=== PATIENT | female | born 1930 | race Caucasian/White ===

== ENCOUNTER 2016-07-12 08:33 | Emergency (ER) | payer MEDICARE, OTHER ==
[2016-07-12] MEDS ORDERED: DEXAMETHASONE 10 MG/ML VIAL PO STA (10:50)
[2016-07-12] MEDS ORDERED: CHERRY SYRUP 10 ML UDC PO ONE (10:51)
[2016-07-12] MEDS ORDERED: DEXAMETHASONE 10 MG/ML VIAL ONE (10:51)
== END 2016-07-12 11:21 | disposition home or self-care (01) ==
DX: S20.211A Contusion of right front wall of thorax, initial encounter (principal); W01.0XXA Fall on same level from slipping, tripping and stumbling without subsequent striking against object, initial encounter; Y92.019 Unspecified place in single-family (private) house as the place of occurrence of the external cause; E03.9 Hypothyroidism, unspecified; M19.90 Unspecified osteoarthritis, unspecified site
CPT/HCPCS: 71101; 99283; A9270

== ENCOUNTER 2017-01-24 08:55 | Outpatient (CLI) | payer MEDICARE, OTHER ==
--- NOTE | 2017-01-24 15:43 | Ultrasound Report ---
RIGHT LEG ARTERIAL DUPLEX: 01/24/2017 CLINICAL INDICATION: Claudication. TECHNIQUE: Real-time sonographic vascular imaging was performed by the project development coordinator through the lower extremities utilizing both color-flow and Doppler spectral analysis. Multiple parts sales representative static images were saved for review. RIGHT SIDE SITE PSV WAVEFORM STEN MANNEQUIN SANDER AND FINISHER 64 triphasic PSFA 67 triphasic MSFA 68 triphasic DSFA 47 biphasic PFA 44 triphasic POP 35 biphasic FLAVIA 31 monophasic GARMENT PARTS CUTTER HAND 19 monophasic PER 23 monophasic DPA 30 monophasic FINDINGS: Waveforms are predominantly triphasic in the thigh, and monophasic below the level of the popliteal. Despite this, there is no evidence of a focal velocity increase to suggest a hemodynamically significant stenosis. IMPRESSION: LIKELY SMALL VESSEL DISEASE, PRODUCING MONOPHASIC WAVEFORMS IN THE CALF. NO EVIDENCE OF A FOCAL HEMODYNAMICALLY SIGNIFICANT ARTERIAL STENOSIS. MTDD
== END 2017-01-24 08:56 | disposition home or self-care (01) ==
LOC: DI 08:55
PROVIDERS: ATTEND Internal Medicine
DX: I73.9 Peripheral vascular disease, unspecified (principal)

== ENCOUNTER 2018-04-02 12:26 | Outpatient (CLI) | payer MEDICARE, OTHER | END 2018-04-02 12:27 | disposition home or self-care (01) | LOC: DI 12:26 | PROVIDERS: ATTEND Internal Medicine | DX: Z53.9 Procedure and treatment not carried out, unspecified reason (principal) ==

== ENCOUNTER 2018-04-02 12:31 | Outpatient (CLI) | payer MEDICARE, OTHER ==
--- NOTE | 2018-04-02 13:53 | XRAY Report ---
Reason: WRIST PAIN AFTER FALL Procedure Date: 04/02/2018 Accession Number: [id number] / [id number] Procedure: XR - Wrist 4 View RT CPT Code: FULL RESULT: EXAM: RIGHT WRIST RADIOGRAPHY EXAM DATE: 04/02/2018 01:07 PM. CLINICAL HISTORY: WRIST PAIN AFTER FALL. COMPARISON: XR WRIST COMPLETE 3 VIEWS 04/20/2011 7:00 PM HAND 3 VIEW RT 04/02/2018 12:54 PM. TECHNIQUE: 4 views. FINDINGS: Bones: Osteopenia. No definite fracture or other bone lesion. Joints: Moderate degenerative changes in the first CMC and navicular multangular joints. No definite erosions. Soft Tissues: Mild soft tissue swelling. IMPRESSION: Soft tissue swelling. RADIA
--- NOTE | 2018-04-02 13:56 | XRAY Report ---
Reason: WRIST PAIN AFTER FALL Procedure Date: 04/02/2018 Accession Number: [id number] / [id number] Procedure: XR - Hand 3 View RT CPT Code: FULL RESULT: EXAM: RIGHT HAND RADIOGRAPHY EXAM DATE: 04/02/2018 12:54 PM. CLINICAL HISTORY: WRIST PAIN AFTER FALL. COMPARISON: XR WRIST COMPLETE 3 VIEWS 04/20/2011 7:00 PM. TECHNIQUE: 3 views. FINDINGS: Bones: Osteopenia. No definite fracture or other bone lesion. Multiple small cysts notably in the fifth metacarpal head and third, fourth, and fifth middle phalangeal heads. Joints: Mild degenerative changes distally. Moderate degenerative changes in the first CMC joint. Soft Tissues: Mild soft tissue swelling. IMPRESSION: Soft tissue swelling. RADIA
== END 2018-04-02 12:32 | disposition home or self-care (01) ==
LOC: DI 12:31
PROVIDERS: ATTEND Internal Medicine
DX: S69.91XA Unspecified injury of right wrist, hand and finger(s), initial encounter (principal)

== ENCOUNTER 2018-08-02 13:34 | Emergency (ER) | payer MEDICARE, OTHER ==
[2018-08-02 13:47] VITALS: BP 138/65
== END 2018-08-02 14:00 | disposition left against medical advice (07) ==
LOC: ED 13:34
DX: Z53.21 Procedure and treatment not carried out due to patient leaving prior to being seen by health care provider (principal)

== ENCOUNTER 2018-09-19 11:43 | Outpatient (CLI) | payer MEDICARE, OTHER ==
--- NOTE | 2018-09-19 12:38 | CT Report ---
Reason: HEADACHE, REPEATED FALLS Procedure Date: 09/19/2018 Accession Number: [id number] / [id number] Procedure: CT - HEAD WO CPT Code: FULL RESULT: EXAM: CT HEAD EXAM DATE: 09/19/2018 12:09 PM. CLINICAL HISTORY: HEADACHE, REPEATED FALLS. COMPARISON: HEAD W/O 12/18/2015 4:18 PM BRAIN W/O 01/30/2017 9:20 AM. TECHNIQUE: Multiaxial CT images were obtained from the foramen magnum to the vertex. Reformats: Sagittal and coronal. IV contrast: None. In accordance with CT protocol optimization, one or more of the following dose reduction techniques were utilized for this exam: automated exposure control, adjustment of mA and/or KV based on patient size, or use of iterative reconstructive technique. FINDINGS: Parenchyma: No evidence of an acute vascular insult or acute parenchymal hemorrhage. No midline shift. No mass-effect. Parenchymal volume loss with periventricular regions of low attenuation. Extraaxial Spaces: Extra-axial spaces are prominent. No subdural or epidural collections identified. Ventricles: Ventricles are enlarged although symmetric. Sinuses and Orbits: Imaged paranasal sinuses, orbits, and mastoids show no significant abnormality. Bones: No evidence of fracture or calvarial defect. Other: Changes are seen from bilateral lens surgery. Vascular calcifications. IMPRESSION: 1. No acute intracranial abnormality is identified. 2. No acute fracture. 3. Parenchymal volume loss and chronic white matter changes. RADIA
--- NOTE | 2018-09-19 12:55 | CT Report ---
Reason: REPEATED FALLS, HEADACHE, SYNCOPE AND COLLAPSE Procedure Date: 09/19/2018 Accession Number: [id number] / [id number] Procedure: CT - CERVICAL SPINE WO CPT Code: FULL RESULT: EXAM: CT CERVICAL SPINE WITHOUT CONTRAST DATE: 09/19/2018 12:09 PM. HISTORY: REPEATED FALLS, HEADACHE, SYNCOPE AND COLLAPSE. COMPARISONS: HEAD W/O 12/18/2015 4:18 PM CERVICAL SPINE W/O 08/18/2012 7:00 PM. TECHNIQUE: Thin-section axial images were acquired of the cervical spine without contrast. Post-processing: Coronal and sagittal reformats. Other: Headache, repeated falls.. In accordance with CT protocol optimization, one or more of the following dose reduction techniques were utilized for this exam: automated exposure control, adjustment of mA and/or KV based on patient size, or use of iterative reconstructive technique. FINDINGS: Alignment: 1.5 mm anterior subluxation C6 on C7. 2 mm anterior subluxation C7 on T1. Otherwise normal alignment. Bones: No fracture or bone lesion. Interspace Levels/Facets: C1-C2: Atlantodental joint space narrowing and marginal osteophytes similar to prior. C2-C3: Minimal facet arthropathy. No stenosis. C3-C4: Small central disk protrusion and mild facet arthropathy. No significant stenosis. C4-C5: Minimal disk bulge. Right great than left facet arthropathy. Small uncinate hypertrophy. Mild left great than right foraminal narrowing. C5-C6: Disk height loss. Annular disk bulge and osteophyte formation. Mild left greater than right facet arthropathy. Mild effacement of the thecal sac. Mild left foraminal stenosis. Mild right foraminal narrowing. C6-C7: Disk height loss. Minimal spondylolisthesis. Slight annular disk bulge and osteophyte formation without significant stenosis. C7-T1: Mild disk height loss. Minimal grade 1 spondylolisthesis. Small central disk protrusion and osteophyte formation without significant stenosis. Musculature: Normal. No fatty atrophy. Other: Lung apices are well aerated. Prevertebral soft tissues within normal limits. Aberrant origin of the right subclavian artery. IMPRESSION: 1. Cervical spondylosis. He had no significant canal or foraminal stenosis. RADIA
== END 2018-09-19 11:44 | disposition home or self-care (01) ==
LOC: DI 11:43
PROVIDERS: ATTEND Internal Medicine
DX: M47.812 Spondylosis without myelopathy or radiculopathy, cervical region (principal); M50.21 Other cervical disc displacement, high cervical region; R51 Headache; R55 Syncope and collapse; R29.6 Repeated falls; R41.3 Other amnesia
CPT/HCPCS: 70450; 72125

== ENCOUNTER 2018-12-05 09:37 | Outpatient (CLI) | payer MEDICARE, OTHER ==
--- NOTE | 2018-12-09 00:47 | XRAY Report ---
Reason: LEFT 4TH TOE PAIN Procedure Date: 12/05/2018 Accession Number: [id number] / [id number] Procedure: XR - Foot 3 View LT CPT Code: FULL RESULT: EXAM: LEFT FOOT RADIOGRAPHY EXAM DATE: 12/05/2018 10:10 AM. CLINICAL HISTORY: LEFT 4TH TOE PAIN. COMPARISON: TOE(S) LT 03/03/2016 11:07 AM. TECHNIQUE: 3 views. FINDINGS: Bones: Normal. No fractures or bone lesions. Joints: Add to degenerative changes in the first MTP joint. No subluxations. Soft Tissues: Arterial calcification noted. IMPRESSION: Advanced degenerative changes of the first MTP joint, otherwise no bony abnormality. RADIA
== END 2018-12-05 09:38 | disposition home or self-care (01) ==
LOC: DI 09:37
PROVIDERS: ATTEND Internal Medicine
DX: M19.072 Primary osteoarthritis, left ankle and foot (principal)

== ENCOUNTER 2019-09-11 19:41 | Emergency (ER) | payer MEDICARE, OTHER ==
[2019-09-11] MEDS ORDERED: LIDOCAINE PATCH 5% TOP STA (20:04)
--- NOTE | 2019-09-11 20:07 | ED Physician Documentation ---
History of Present Illness - Stated complaint Stated Complaint: CHEST PAIN - Chief complaint Chief Complaint: Trauma Ch/Bk - History obtained from History obtained from: Patient, Family - Additonal information Additional information: This is a very pleasant and healthy elderly woman who was outside in her shed and she had a mechanical fall forward hitting her chest wall against the edge of a garbage can. She has severe pain with motion but minimal pain at rest. It is in the anterior chest. No other injuries. Review of Systems Constitutional: reports: Reviewed and negative Eyes: reports: Reviewed and negative Ears: reports: Reviewed and negative Nose: reports: Reviewed and negative PD PAST MEDICAL HISTORY - Past Medical History Cardiovascular: None Endocrine/Autoimmune: HyPOthyroidism GI: None : None HEENT: None Psych: Depression Musculoskeletal: Osteoarthritis, Osteoporosis Derm: None - Past Surgical History Past Surgical History: Yes - Present Medications Home Medications: Ambulatory Orders Medication Instructions Recorded Confirmed HYDROcod/ACETAM 5/325 [[place] 5/325] 1 - 2 ea PO Q6H PRN #15 tablet 07/12/16 Lidocaine Patch 5% [Lidoderm Patch] 1 patch TOP DAILY PRN #10 patch 09/11/19 - Allergies Allergies/Adverse Reactions: Allergies Allergy/AdvReac Type Severity Reaction Status Date / Time No Known Drug Allergies Allergy Verified 08/02/18 13:47 - Social History Does the pt smoke?: No Smoking Status: Never smoker Does the pt drink ETOH?: No Does the pt have substance abuse?: No PD ED PE NORMAL - Vitals Vital signs reviewed: Yes - General General: Alert and oriented X 3, Other (She is focally tender to the right anterior ribs low down near the sternum. She winces with certain motions.) - HEENT HEENT: PERRL, EOMI - Neck Neck: Supple, no meningeal sign, No bony TTP - Cardiac Cardiac: RRR, No murmur - Respiratory Respiratory: No respiratory distress, Clear bilaterally - Abdomen Abdomen: Non tender - Neuro Neuro: Alert and oriented X 3, No motor deficit, Normal speech Results - Vitals Vitals: Vital Signs - 24 hr 09/11/19 09/11/19 19:43 20:05 Temperature 37.1 C Heart Rate 88 79 Respiratory 18 23 Rate Blood Pressure 159/75 H 148/90 H O2 Saturation 96 96 Oxygen O2 Source Room air PD MEDICAL DECISION MAKING - ED course ED course: 89-year-old woman presents with an isolated anterior chest wall injury after mechanical fall. A CT was done and showed no acute traumatic injuries. The incidental findings were discussed with her. She felt she did have good relief with the lidocaine patch and requested a prescription for same. Departure - Departure Disposition: 01 Home, Self Care Clinical Impression: Contusion of chest wall Qualifiers: Encounter type: initial encounter Laterality: right Qualified Code(s): S20.211A - Contusion of right front wall of thorax, initial encounter Condition: Good Record reviewed to determine appropriate education?: Yes Instructions: ED Contusion Chest Wall Prescriptions: Lidocaine Patch 5% [Lidoderm Patch] 1 patch TOP DAILY PRN #10 patch PRN Reason: pain Comments: As discussed, you have some incidental findings on the CT, some gallstones and a right upper lobe pulmonary nodule and we recommend a follow-up CT scan in 6 to 12 months. Return for new or worsening symptoms.
--- NOTE | 2019-09-11 21:13 | CT Report ---
PROCEDURE: CHEST WO INDICATIONS: chest inj TECHNIQUE: Noncontrast 5 mm thick sections acquired from the pulmonary apices to the posterior costophrenic angl es. 7 mm thick coronal and sagittal MIP reformats were then acquired. For radiation dose reduction, the following was used: automated exposure control, adjustment of mA and/or kV according to patient size. COMPARISON: 08/20/2012. FINDINGS: Image quality: Excellent. Lungs and pleura: No acute air space opacities. 1.1 cm groundglass nodule noted in the right upper l obe (series 4, image 93) which is new compared to prior CT scan. Additional bilateral calcified and n oncalcified solid lung nodules are not significantly changed compared to the prior exam. No pleural e ffusions or pneumothorax. Central and peripheral airways are patent and normal in caliber. Mediastinum: Heart size is normal. Atherosclerotic calcifications noted in the aorta, great vessels and coronary vasculature. No pericardial effusion. No mediastinal adenopathy by size criteria. 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 Thoracic aorta and central pulm onary arteries are normal in size. Esophagus is normal in caliber. No hiatal hernia. Bones and chest wall: No suspicious bony lesions. Chronic posterior right 10th and 11th rib fracture s which is healed in slight deformity. No acute rib fractures identified. No vertebral body compress ion fractures. No axillary or supraclavicular adenopathy by size criteria. The thyroid is normal in size. Abdomen: Partially visualized large gallstone. Visualized upper abdominal solid organs and bowel loo ps appear normal in the absence of contrast. IMPRESSION: 1. No acute traumatic injury. 2. No lung consolidation or pleural fluid collections. 3. Atherosclerosis including coronary vasculature. 4. Cholelithiasis. 5. 1.1 cm right upper lobe bronchus nodule. Recommend follow-up CT scan in 6-12 months based on Fleis chner Society criteria outlined below. Fleischner Society criteria for lung nodule followup. Solid nodules Solitary nodule size: <6 mm * low risk patients: no follow-up needed * high risk patients: optional CT at 12 months Solitary nodule size: 6-8 mm * low risk patients: follow-up at 6-12 months, then consider further follow-up at 18-24 months * high risk patients: initial follow-up CT at 6-12 months and then at 18-24 months if no change Solitary nodule size: >8 mm * either low or high risk patients * consider follow-up CT at 3 months, and/or CT-PET, and/or biopsy Multiple nodules size: <6 mm * low risk patients: no routine follow-up * high risk patients: optional CT at 12 months Multiple nodules size: 6-8 mm * low risk patients: follow-up at 3-6 months, then consider further follow-up at 18-24 months * high risk patients: follow-up at 3-6 months, then at 18-24 months if no change Multiple nodules size: >8 mm * low risk patients: follow-up at 3-6 months, then consider further follow-up at 18-24 months * high risk patients: follow-up at 3-6 months, then at 18-24 months if no change Subsolid nodules Solitary pure ground-glass nodule * nodule size <6mm * no CT follow-up required * nodule size ?6mm * follow up CT at 6-12 months, then every 2 years until 5 years Solitary part-solid nodule * nodule size <6mm * no CT follow-up required * nodule size ?6mm * follow-up CT at 3-6 months * if unchanged, and solid component remains <6mm, then annual follow-up for 5 years Multiple subsolid nodules * nodule size <6mm * follow-up CT at 3-6 months * consider further follow-up at 2 and 4 years if stable * nodule size ?6mm * follow-up CT at 3-6 months * subsequent management based on the most suspicious nodule(s) Recommendations do not apply to lung cancer screening, patient's with immunosuppression or patients w ith known primary cancer. Reviewed by: Freya Zamora MD, PhD on 09/11/2019 9:12 PM PDT Approved by: Freya Zamora MD, PhD on 09/11/2019 9:12 PM PDT Station ID: [id number]
[2019-09-11 22:03] VITALS: BP 144/78
== END 2019-09-11 22:03 | disposition home or self-care (01) ==
LOC: ED 19:41
DX: S20.211A Contusion of right front wall of thorax, initial encounter (principal); K80.20 Calculus of gallbladder without cholecystitis without obstruction; W01.198A Fall on same level from slipping, tripping and stumbling with subsequent striking against other object, initial encounter; Y92.096 Garden or yard of other non-institutional residence as the place of occurrence of the external cause; R91.1 Solitary pulmonary nodule; I25.10 Atherosclerotic heart disease of native coronary artery without angina pectoris
CPT/HCPCS: 71250; 99282; 99284; A9270

== ENCOUNTER 2020-02-15 22:01 | Emergency (ER) | payer MEDICARE, OTHER ==
--- NOTE | 2020-02-15 22:48 | ED Physician Documentation ---
History of Present Illness - Stated complaint Stated Complaint: GLF/HEAD LAC - Chief complaint Chief Complaint: Trauma Hd/Nk - History obtained from History obtained from: Patient - Additonal information Additional information: Pt comes to the emergency department, brought by son, after ground-level fall at home. Patient states she was walking across the room and turned a corner when she suddenly lost her balance. She states this happens frequently and that she has had falls before for the same reason. She felt herself falling and remembers hitting her head on something and feeling a "pop" which she thinks may have been in her neck. Patient states she lost consciousness though is not clear for how long. Patient upon coming to found that she had a wound on the back of her head and pain in her left shoulder. Patient denies any pain in her neck. No numbness or tingling in her extremities. No extremity weakness. Patient is not on any anticoagulants. She denies any back pain, rib pain, or hip pain. No other complaints at this time. Review of Systems Ten Systems: 10 systems reviewed and negative Constitutional: reports: Reviewed and negative Eyes: reports: Reviewed and negative Ears: reports: Reviewed and negative Nose: reports: Reviewed and negative Throat: reports: Reviewed and negative Cardiac: reports: Reviewed and negative Respiratory: reports: Reviewed and negative GI: reports: Reviewed and negative : reports: Reviewed and negative Skin: reports: Reviewed and negative Musculoskeletal: reports: Joint pain (Left shoulder), Reviewed and negative Neurologic: reports: Reviewed and negative Psychiatric: reports: Reviewed and negative Endocrine: reports: Reviewed and negative Immunocompromised: reports: Reviewed and negative PD PAST MEDICAL HISTORY - Past Medical History Cardiovascular: None Endocrine/Autoimmune: HyPOthyroidism GI: None : None HEENT: None Psych: Depression Musculoskeletal: Osteoarthritis, Osteoporosis Derm: None - Past Surgical History Past Surgical History: Yes - Present Medications Home Medications: Ambulatory Orders Medication Instructions Recorded Confirmed HYDROcod/ACETAM 5/325 [[place] 5/325] 1 - 2 ea PO Q6H PRN #15 tablet 07/12/16 Lidocaine Patch 5% [Lidoderm Patch] 1 patch TOP DAILY PRN #10 patch 09/11/19 - Allergies Allergies/Adverse Reactions: Allergies Allergy/AdvReac Type Severity Reaction Status Date / Time No Known Drug Allergies Allergy Verified 02/15/20 22:13 - Social History Does the pt smoke?: No Smoking Status: Never smoker Does the pt drink ETOH?: No Does the pt have substance abuse?: No PD ED PE NORMAL - Vitals Vital signs reviewed: Yes - General General: Alert and oriented X 3, No acute distress - HEENT HEENT: PERRL, EOMI, Moist mucous membranes, Other (2-1/2 cm vertical laceration to left posterior scalp with active venous bleeding. No skull depression.) - Neck Neck: Supple, no meningeal sign, No bony TTP - Cardiac Cardiac: RRR, No murmur, Strong equal pulses - Respiratory Respiratory: No respiratory distress, Clear bilaterally, Other (No tenderness palpation over ribs. No step-off.) - Abdomen Abdomen: Soft, Non tender, Non distended - Back Back: No CVA TTP, No spinal TTP - Derm Derm: Normal color, Warm and dry, No rash - Extremities Extremities: No deformity, No edema, No calf tenderness / cord, Other (Patient anterior left shoulder without palpable deformity. Limited range of motion secondary to pain. Range of motion intact at left elbow, wrist, and finger joints. No tenderness to palpation over hips or lower extremities.) - Neuro Neuro: Alert and oriented X 3 - Psych Psych: Normal mood, Normal affect Results - Vitals Vitals: Vital Signs - 24 hr 02/15/20 02/15/20 02/15/20 22:09 22:21 23:04 Temperature 36.6 C 36.6 C Heart Rate 87 87 78 Respiratory 18 18 18 Rate Blood Pressure 161/98 H 161/98 H 139/77 H O2 Saturation 97 97 98 02/16/20 00:11 Temperature 36.8 C Heart Rate 69 Respiratory 18 Rate Blood Pressure 140/75 H O2 Saturation 98 Oxygen O2 Source Room air - Rads (name of study) L shoulder XR Radiology: Final report received, EMP read indepedently, See rad report (neg) Ct head Radiology: Final report received, EMP read indepedently, See rad report (No acute disease.) CT c-spine Radiology: Final report received, EMP read indepedently, See rad report Procedures - Laceration (location) scalp Length in cm: 2.5 Wound type: Linear, Into subcut fat, Clean Neurovascular status: Sensory intact Anesthesia: Lidocaine 1% with epi, Volume - enter cc (3) Wound Preparation: Irrigated copiously NS, Wound explored, To the base. No: FB identified Skin layer closure: Yolanda, Other (4 yolanda) Other: Patient tolerated well, No complications, Neurovascular intact, Dressing applied, Tetanus UTD Complexity: Intermediate PD MEDICAL DECISION MAKING - ED course Complexity details: reviewed results, re-evaluated patient, considered differential, d/w patient ED course: Laceration was repaired as above, and patient was worked up with CT scans of the head and neck, as well as x-ray of the left shoulder. The patient's imaging studies were all negative for acute findings. We have discussed wound care and [id number] medications for pain control at home. We have discussed the usual indications for return, as well as the timeline for staple removal. Departure - Departure Disposition: 01 Home, Self Care Clinical Impression: Fall from ground level Closed head injury Qualifiers: Encounter type: initial encounter Qualified Code(s): S09.90XA - Unspecified injury of head, initial encounter Scalp laceration Qualifiers: Encounter type: initial encounter Qualified Code(s): S01.01XA - Laceration without foreign body of scalp, initial encounter Condition: Stable Instructions: ED Head Injury Closed, ED Laceration Scalp Stitch Or Stap Comments: The CT scans of your head and neck do not show any bleeding in your brain or any broken bones. Your left shoulder x-ray looks goodno broken bones. You have an approximately 1 inch cut in your scalp, which has been repaired with yolanda. These should be taken out by a medical professional in 10 days. You may follow-up with your doctor or go to urgent care to have this done. If you cannot do either 1 of these, then you may come back to the emergency department and have them removed here. You may let water and soap run over the wound, but please do not rub, scrub, or immerse the wound until yolanda are removed. If you begin to notice pus draining from the wound or any redness and swelling spreading progressively wound away from the wound, you should have the wound rechecked. You may take ibuprofen or Tylenol to help with any pain you have in your shoulder. Discharge Date/Time: 02/16/20 00:11
[2020-02-15] MEDS ORDERED: ACETAMINOPHEN 325 MG TABLET PO STA (23:49)
[2020-02-16 00:14] VITALS: BP 140/75
--- NOTE | 2020-02-16 09:42 | XRAY Report ---
PROCEDURE: Shoulder 3 View LT INDICATIONS: fall/pain TECHNIQUE: 3 views of the shoulder were acquired. COMPARISON: 01/19/2011. Correlation is also made with head CT and cervical spine CT, 02/15/2020 FINDINGS: Bones: No fractures or dislocations. No suspicious bony lesions. Visualized ribs appear intact. D egenerative changes are seen, including moderate patellofemoral joint space narrowing, with associate d remodeling change with osteophyte formation. Soft tissues: No suspicious soft tissue calcifications. IMPRESSION: No acute fracture or dislocation can be seen. Degenerative changes are seen. Note: No significant discrepancy from the preliminary report. Reviewed by: Jose Mata MD on 02/16/2020 8:41 AM [place] Approved by: Jose Mata MD on 02/16/2020 8:41 AM [facility] Station ID: [id number]
--- NOTE | 2020-02-16 10:06 | CT Report ---
PROCEDURE: HEAD WO INDICATIONS: fall/head trauma/loc TECHNIQUE: Noncontrast 4.5 mm thick angled axial sections acquired from the foramen magnum to the vertex. For r adiation dose reduction, the following was used: automated exposure control, adjustment of mA and/or kV according to patient size. COMPARISON: Prior head CT examinations, 09/19/2018, 12/18/2015. Correlation is made with prior brain M RI, 01/30/2017 Correlation is made with a complete cervical spine CT, 02/15/2020. FINDINGS: Image quality: There is streak artifact seen through the skull base. CSF spaces: Basal cisterns are patent. No extra-axial fluid collections. Ventricles are normal in size and shape. Brain: No midline shift. No intracranial masses or hemorrhage. Brain parenchymal volume loss is se en. Chronic small vessel ischemic changes are seen. [place]-white matter interface is normal. Skull and face: There is a repaired laceration seen involving the left posterior parietal scalp, wit h yolanda. No underlying calvarial fracture is seen. Calvarium and visualized facial bones are intact , without suspicious lesions. Sinuses: Visualized sinuses and mastoids are clear. IMPRESSION: No significant intracranial abnormality is seen. Repaired left parietal scalp laceration, without an underlying fracture. Age-appropriate brain parenchymal volume loss and chronic small vessel ischemic change can be seen. Note: No significant discrepancy from the preliminary report. Reviewed by: Jose Mata MD on 02/16/2020 9:05 AM [facility] Approved by: Jose Mata MD on 02/16/2020 9:05 AM [facility] Station ID: [id number]
--- NOTE | 2020-02-16 10:09 | CT Report ---
PROCEDURE: CERVICAL SPINE WO INDICATIONS: fall/head trauma/pain TECHNIQUE: Noncontrast 3 mm thick sections acquired from the skull base to the T4 level. Sagittal and coronal r eformats were then constructed. For radiation dose reduction, the following was used: automated exp osure control, adjustment of mA and/or kV according to patient size. COMPARISON: Correlation is made with the accompanying head CT, 02/15/2020. Prior cervical spine CT e xaminations, 09/19/2018, 08/18/2012 FINDINGS: Image quality: Excellent. Bones: No fractures or dislocations. Visualized superior ribs are intact. Degenerative changes are seen throughout, including moderate disc space narrowing at C5-C6 and C6-C7. Focal degenerative change can also be seen involving the C1-C2 interface anteriorly. Milder degenera tive changes are seen elsewhere. Soft tissues: Prevertebral soft tissues are normal in thickness. No paravertebral hematomas. No ap ical pneumothoraces. There is an aberrant right subclavian artery. Atherosclerotic calcification is seen. A small amount of patchy left upper lobe infiltrate can be seen. IMPRESSION: No acute fractures are seen. Degenerative changes are seen. Within the left upper lobe, there is a small amount of patchy infiltrate seen. 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 Reviewed by: Jose Mata MD on 02/16/2020 9:08 AM [place] Approved by: Jose Mata MD on 02/16/2020 9:[address] [facility] Station ID: [id number]
== END 2020-02-16 00:11 | disposition home or self-care (01) ==
LOC: ED 22:01
DX: S01.01XA Laceration without foreign body of scalp, initial encounter (principal); S09.90XA Unspecified injury of head, initial encounter; W18.39XA Other fall on same level, initial encounter; Y93.01 Activity, walking, marching and hiking; Y92.009 Unspecified place in unspecified non-institutional (private) residence as the place of occurrence of the external cause
CPT/HCPCS: 12001; 70450; 72125; 73030; 99284; A9270

== ENCOUNTER 2020-11-12 16:44 | Emergency (ER) | payer MEDICARE, OTHER ==
[2020-11-12 16:53] VITALS: BP 117/73
--- NOTE | 2020-11-12 17:33 | XRAY Report ---
PROCEDURE: Ribs w/PA Chest RT INDICATIONS: cough, R rib pain TECHNIQUE: 2 views of the right ribs were acquired, along with a single view chest. COMPARISON: None FINDINGS: Surgical changes and devices: None. Bones and chest wall: No fractures or dislocations. No suspicious bony lesions. Overlying soft tis sues appear unremarkable. A healed right 10th rib fracture is noted. Lungs and pleura: No pleural effusions or pneumothorax. Lungs appear clear. There is a calcified g ranuloma in the right midlung. Mediastinum: Mediastinal contours appear normal. Heart size is normal. IMPRESSION: 1. Remote right 10th rib fracture. 2. No acute rib fracture identified. Reviewed by: Zurdo Francisco on 11/12/2020 5:31 PM PDT Approved by: Zurdo Francisco on 11/12/2020 5:31 PM PDT Station ID: [id number]
--- NOTE | 2020-11-12 19:04 | ED Physician Documentation ---
History of Present Illness - Stated complaint Stated Complaint: RT RIB PX,COUGH - Chief complaint Chief Complaint: Resp - Additonal information Additional information: 89-year-old female presents emergency department for evaluation of right lower lateral rib pain. This began after a coughing fit in bed 4 nights ago. She reports an extended time period in which she was trying to cough up phlegm or sputum. She thinks that she swallowed the sputum but since then she has had pain in the right side. No shortness of breath. No fevers or hemoptysis no persistent cough since then. She is quite a spry 89-year-old female who denies any pertinent past medical history takes no prescribed medications denies any history of tobacco use. Review of Systems Constitutional: denies: Fever, Chills Eyes: reports: Reviewed and negative Ears: reports: Reviewed and negative Nose: reports: Reviewed and negative Throat: reports: Reviewed and negative Cardiac: reports: Reviewed and negative Respiratory: reports: Reviewed and negative GI: reports: Reviewed and negative : reports: Reviewed and negative Musculoskeletal: reports: Other (Right lower lateral rib wall pain) Neurologic: reports: Reviewed and negative PD PAST MEDICAL HISTORY - Past Medical History Cardiovascular: None Endocrine/Autoimmune: HyPOthyroidism GI: None : None HEENT: None Psych: Depression Musculoskeletal: Osteoarthritis, Osteoporosis Derm: None - Past Surgical History Past Surgical History: Yes - Present Medications Home Medications: Ambulatory Orders Medication Instructions Recorded Confirmed HYDROcod/ACETAM 5/325 [[place] 5/325] 1 - 2 ea PO Q6H PRN #15 tablet 07/12/16 Lidocaine Patch 5% [Lidoderm Patch] 1 patch TOP DAILY PRN #10 patch 09/11/19 - Allergies Allergies/Adverse Reactions: Allergies Allergy/AdvReac Type Severity Reaction Status Date / Time No Known Drug Allergies Allergy Verified 11/12/20 16:51 - Social History Does the pt smoke?: No Smoking Status: Never smoker Does the pt drink ETOH?: No Does the pt have substance abuse?: No PD ED PE EXPANDED - General General: Alert, No acute distress, Well developed/nourished - Cardiac Cardiac: Regular Rate, Femoral strong equal, Pedal strong equal, Chest wall TTP (Tenderness on the right lower lateral rib wall just above the diaphragm. No ecchymosis crepitus swelling or erythema noted.). No: Murmur Present - Respiratory Respiratory: Clear to ausultation suman, Other (Able to take full deep uninhibited respiratory breaths. Unremarkable cardiopulmonary auscultation.). No: Distress, Labored - Abdomen Abdomen: Normal Bowel sounds. No: Tender to palpation - Extremities Extremities: Normal. No: Deformity, Tenderness - Neuro Neuro: Alert and Oriented X 3, CNII-XII intact - GCS Eye Opening: Spontaneous Motor: Obeys Commands Verbal: Oriented Total: 15 Results - Vitals Vitals: Vital Signs - 24 hr 11/12/20 16:51 Temperature 37.3 C Heart Rate 82 Respiratory 16 Rate Blood Pressure 117/73 O2 Saturation 92 Oxygen O2 Source Room air PD MEDICAL DECISION MAKING - ED course Complexity details: reviewed results, d/w patient, d/w family ED course: 89-year-old female presents emergency department with 4 days of right lower lat eral rib wall pain. This followed a coughing episode about 4 nights ago. She does have a history of falls in the remote past. X-ray today shows a single right lower 10th rib fracture at the site where patient points to the pain. There are no findings of pneumonia. No findings of hypoxia or respiratory distress. Advised Motrin or ibuprofen [id number] for pain as well as lidocaine patches. Emergent worrisome return precautions were discussed close follow-up with PCP also advised. Departure - Departure Disposition: 01 Home, Self Care Clinical Impression: Closed rib fracture Qualifiers: Encounter type: initial encounter Rib fracture type: single rib Laterality: right Qualified Code(s): S22.31XA - Fracture of one rib, right side, initial encounter for closed fracture Condition: Stable Record reviewed to determine appropriate education?: Yes Instructions: ED Contusion Vs Minor Fx Rib Comments: Roxana the x-ray of your chest shows that your 10th right rib has been fractured at some time in the past likely within the last few months after you had one of your falls. When you had your coughing fit a few nights ago it is likely that you restrained this rib. I do recommend that you take Tylenol or ibuprofen [id number]-[id number] for discomfort. Lidocaine or Salonpas patches can also be helpful. The x-ray does not show any findings of pneumonia. If at any point you develop chest pain, have bloody sputum difficulty breathing that is important you return to the ER for a second evaluation.
== END 2020-11-12 19:12 | disposition home or self-care (01) ==
LOC: ED 16:44
DX: S22.31XA Fracture of one rib, right side, initial encounter for closed fracture (principal); X58.XXXA Exposure to other specified factors, initial encounter; Z91.81 History of falling; E03.9 Hypothyroidism, unspecified; M81.0 Age-related osteoporosis without current pathological fracture; M19.90 Unspecified osteoarthritis, unspecified site
CPT/HCPCS: 99283

== ENCOUNTER 2020-11-27 12:18 | Outpatient (CLI) | payer MEDICARE, OTHER ==
[2020-11-27] MEDS ORDERED: IOPAMIDOL-300 100 ML VIAL ONE (12:39)
[2020-11-27] MEDS ORDERED: IOVERSOL 320 50 ML VIAL ONE (12:40)
--- NOTE | 2020-11-27 15:30 | CT Report ---
PROCEDURE: CHEST W INDICATIONS: WEIGHT LOSS, FATIGUE CONTRAST: IV CONTRAST: Isovue 300 ml: 100 PO CONTRAST: Optiray 320 ml50 TECHNIQUE: After the administration of intravenous contrast, images were acquired from the pulmonary apices to t he posterior costophrenic angles. Multiplanar MIP reformats were acquired. For radiation dose reduc tion, the following was used: automated exposure control, adjustment of mA and/or kV according to pa tient size. COMPARISON: Chest 1720 FINDINGS: Image quality: Excellent. Lungs and pleura: There is a faint appearance of parenchymal opacities scattered within the upper and lower lobes, left greater than right. Prominent calcified nodules noted in the right lower lobe. Pre viously noted groundglass opacity within the right upper lobe on series 4 image 85 remains present me asuring 8 mm, decreased from 12 mm on prior exam. No pleural effusions or pneumothorax. Central and peripheral airways are patent and normal in caliber. Mediastinum: Heart size is normal. No pericardial effusion. No mediastinal or hilar adenopathy by size criteria. Thoracic aorta and central pulmonary arteries are normal in size. Esophagus is leslie l in caliber. No hiatal hernia. A gross subclavian artery is incidentally noted, consistent with co ngenital variation. Bones and chest wall: No suspicious bony lesions. No vertebral body compression fractures. No axil jose or supraclavicular adenopathy by size criteria. The thyroid is normal in size and there are no incidental findings.. Abdomen: Left renal cyst is present. Otherwise, visualized upper abdominal solid organs appear leslie l. Upper abdominal bowel loops are normal in caliber. IMPRESSION: 1. Faint parenchymal scattered opacities within the upper lobes, left greater than right, new compare d to prior exam. Overall appearance is suggestive of infection or inflammation. These can represent i nfection from atypical etiology such as fungal or mycobacterial. Recommend 3-6 month interval follow- up after appropriate therapy to document resolution. 2. Decreased size of groundglass appearing right upper lobe nodule compared to 2020. CLINICAL RECOMMENDATION STATEMENTS: In patients <35 years with an ITN detected on CT, MRI, or extrathyroidal ultrasound, the Committee re commends further evaluation with dedicated thyroid ultrasound if the nodule is ?1 cm and has no suspi cious imaging features, and if the patient has normal life expectancy. In patients ?35 years with an ITN detected on CT, MRI, or extrathyroidal ultrasound, the Committee re commends further evaluation with dedicated thyroid ultrasound if the nodule is ?1.5 cm and has no ivana picious imaging features, and if the patient has normal life expectancy. (ACR, 2014) Reviewed by: Tanja Rutherford MD on 11/27/2020 3:29 PM PDT Approved by: Tanja Rutherford MD on 11/27/2020 3:29 PM PDT Station ID: [id number]
--- NOTE | 2020-11-27 15:41 | CT Report ---
PROCEDURE: Abdomen/Pelvis W INDICATIONS: WEIGHT LOSS, FATIGUE CONTRAST: IV CONTRAST: Isovue 300 ml: 100 PO CONTRAST: Optiray 320 ml50 TECHNIQUE: After the administration of contrast, 5 mm thick sections acquired from the diaphragms to the sym physis. 5 mm thick coronal and sagittal reformats were acquired. For radiation dose reduction, the following was used: automated exposure control, adjustment of mA and/or kV according to patient size . COMPARISON: Lumbar spine radiographs August 22, 2013 FINDINGS: Image quality: Excellent. ABDOMEN: Lung bases: Lung bases are clear. Heart size is normal. Solid organs: Liver and spleen are normal in size and enhancement. Gallbladder contains show severa l calculi without CT evidence of acute cholecystitis. Biliary system is non dilated. Pancreas enhan deangelo normally. No adrenal nodules. Kidneys demonstrate normal size and enhancement, without hydronep hrosis. 1.5 cm left renal cortical simple cyst noted. Peritoneum and bowel: Bowel loops demonstrate normal wall thickness and caliber. No free fluid or a ir. Nodes and vessels: No retroperitoneal or mesenteric adenopathy by size criteria. Aortic atherosclero sis with minimal aneurysmal ectasia of the distal aorta measures up to 2.7 cm in diameter. PELVIS: Genitourinary: Bladder wall thickness is normal. Miscellaneous: No inguinal hernias or adenopathy. Bones: No suspicious bony lesions. No vertebral body compression fractures. Multilevel degenerativ e disc disease and arthropathy noted in the lower lumbar spine. There is a 30 % wedge-shaped compress ion fracture of L4 without retropulsed fracture fragment. Old healed left inferior pubic rami fractur e and right 11th 12th rib old healed fractures noted IMPRESSION: 1. L4 compression fracture with 30% height loss, stable from 2013 2. Old healed left inferior pubic rami and right rib fractures. 3. Cholelithiasis without CT evidence of acute cholecystitis. Reviewed by: Brandon Lanza MD on 11/27/2020 2:39 PM [facility] Approved by: Brandon Lanza MD on 11/27/2020 2:39 PM [facility] Station ID: [id number]
[2020-11-27] MEDS ORDERED: IOPAMIDOL-300 100 ML VIAL IVP ONE (15:58)
[2020-11-27] MEDS ORDERED: IOVERSOL 320 50 ML VIAL PO ONE (16:00)
== END 2020-11-27 12:19 | disposition home or self-care (01) ==
LOC: DI 12:18
PROVIDERS: ATTEND Internal Medicine
DX: R63.4 Abnormal weight loss (principal); R53.83 Other fatigue; M48.56XA Collapsed vertebra, not elsewhere classified, lumbar region, initial encounter for fracture; S32.502D Unspecified fracture of left pubis, subsequent encounter for fracture with routine healing; S22.41XD Multiple fractures of ribs, right side, subsequent encounter for fracture with routine healing; K80.20 Calculus of gallbladder without cholecystitis without obstruction
CPT/HCPCS: 71260; 74177; Q9967

== ENCOUNTER 2021-05-13 14:03 | Emergency (ER) | payer MEDICARE, OTHER ==
[2021-05-13 14:13] VITALS: BP 121/84
== END 2021-05-13 15:36 | disposition left against medical advice (07) ==
LOC: ED 14:03
DX: Z53.21 Procedure and treatment not carried out due to patient leaving prior to being seen by health care provider (principal)

== ENCOUNTER 2021-05-22 17:04 | Emergency (ER) | payer MEDICARE, OTHER ==
[2021-05-22 17:29] VITALS: BP 151/100
[2021-05-22] MEDS ORDERED: HYDROcod/ACETAM 5/325 MG TABLET PO STA (17:33)
--- NOTE | 2021-05-22 17:34 | ED Physician Documentation ---
History of Present Illness - Stated complaint Stated Complaint: BACK PAIN - Chief complaint Chief Complaint: Neuro - History obtained from History obtained from: Patient - Additonal information Additional information: Very healthy 89-year-old woman was accidentally knocked over by her grandson on ' Day and has had increasing pain in her back ever since. She did hit her head but denies that she has any ongoing headaches. Pain is severe and making her dysfunctional at this juncture. No other injuries. No weakness, numbness, tingling, saddle anesthesia or incontinence. Review of Systems Constitutional: denies: Fever, Chills Ears: reports: Reviewed and negative Nose: reports: Reviewed and negative Throat: reports: Reviewed and negative Cardiac: reports: Reviewed and negative PD PAST MEDICAL HISTORY - Past Medical History Cardiovascular: None Endocrine/Autoimmune: HyPOthyroidism GI: None : None HEENT: None Psych: Depression Musculoskeletal: Osteoarthritis, Osteoporosis Derm: None - Past Surgical History Past Surgical History: Yes - Present Medications Home Medications: Ambulatory Orders Medication Instructions Recorded Confirmed Lidocaine Patch 5% [Lidoderm Patch] 1 patch TOP DAILY PRN #10 patch 09/11/19 05/22/21 HYDROcod/ACETAM 5/325 [Dana 5/325] 1 - 2 tab PO Q6H PRN #20 tablet 05/22/21 - Allergies Allergies/Adverse Reactions: Allergies Allergy/AdvReac Type Severity Reaction Status Date / Time No Known Drug Allergies Allergy Verified 05/22/21 17:17 - Social History Does the pt smoke?: No Smoking Status: Never smoker Does the pt drink ETOH?: No Does the pt have substance abuse?: No PD ED PE NORMAL - Vitals Vital signs reviewed: Yes - General General: Alert and oriented X 3, No acute distress - Abdomen Abdomen: Soft, Non tender - Back Back: Other (Focally tender around L4/L5 the low back. The patient has equal and normal Achilles and patellar reflexes bilaterally. Normal sensation in all areas of the legs. Patient denies saddle anesthesia. Normal strength in flexion-extension at the ankles, knees, and flexion of the hips.) - Neuro Neuro: Alert and oriented X 3, No motor deficit, No sensory deficit, Normal speech Results - Vitals Vitals: Vital Signs - 24 hr 05/22/21 05/22/21 17:10 17:16 Temperature 36.9 C Heart Rate 96 96 Respiratory 28 H 20 Rate Blood Pressure 149/78 H 151/100 H O2 Saturation 97 98 Oxygen O2 Source Room air PD MEDICAL DECISION MAKING - ED course ED course: 89-year-old woman presents 12 days after a fall with persistent and at times worsening back pain. CT of the lumbar spine was done showing significant degenerative change but no fracture or acute trauma. After the administration of a hydrocodone orally she was doing much better. Departure - Departure Disposition: 01 Home, Self Care Clinical Impression: Fall from ground level Back strain Qualifiers: Encounter type: initial encounter Qualified Code(s): S39.012A - Strain of muscle, fascia and tendon of lower back, initial encounter Condition: Good Record reviewed to determine appropriate education?: Yes Instructions: ED Low Back Pain Injury Prescriptions: HYDROcod/ACETAM 5/325 [Dana 5/325] 1 - 2 tab PO Q6H PRN #20 tablet PRN Reason: Pain Comments: As discussed, the CT of your lumbar spine did not show any fractures or other acute injuries, you do have a lot of arthritis in your back, but this is expected at your age. I sent the prescription electronically to [facility] in [place]. Follow-up with your doctor in a week to see how its going. Return for new or worsening symptoms. I am prescribing a short course of narcotic pain medication for you. These are potentially dangerous and addictive medications that should be used carefully. These medications may constipate you. Take an wfwa-cri-lehaeqa stool softener (docusate) twice daily with plenty of water while taking these medications. If you go 24 hours without a bowel movement, take vjxn-cpf-[id number] miralax, per package instructions. Do not drink or drive while taking these medications. If you received narcotic or sedating medications while in the emergency department, do not drive for 24 hours. Store this medication in a safe, secure place and out of reach of children. It is a violation of federal law to give or sell this medication to another person or to use in a manner other than prescribed. The ED will not refill narcotic prescriptions, including prescriptions lost or stolen. To dispose of unwanted medications: 1. [facility] [address] in [place] has a medication drop box. They accept prescription medications (in pill form) Monday through Monday 9:00 a.m. to 5:00 p.m. 2. [facility] [employer] [facility] accepts prescription medications (in pill form only) for disposal year round. Call for more information. 3. Contact the [facility] for the next [facility] sponsored prescription drug collection event. , [phone], or [phone]; Note that many narcotic pain relievers also contain Tylenol/acetaminophen. Please ensure that your total dose of acetaminophen from all sources does not exceed 3 g (3000 mg) per day.
--- NOTE | 2021-05-22 18:37 | CT Report ---
PROCEDURE: LUMBAR SPINE WO INDICATIONS: back inj TECHNIQUE: Noncontrast 3 mm thick sections acquired from the T12 level to the sacrum. Sagittal and coronal refo rmats were constructed. For radiation dose reduction, the following was used: automated exposure co ntrol, adjustment of mA and/or kV according to patient size. COMPARISON: Lumbar spine x-ray 08/22/2013, CT abdomen pelvis 11/27/2020 FINDINGS: Image quality: Excellent. Bones: There is normal bony alignment. Superior endplate deformity resulting in 42% compression def ormity is present. Superior endplate deformity is also present at L2 resulting in approximately 39% c ompression deformity. Both are unchanged compared to 11/27/2020. Multilevel degenerative disc space carolina rowing is present most severe at L4-5 and L5-S1. Multilevel disc bulges are present. Spinal stenosis is present at L3-4, L4-5. Multilevel foraminal narrowing is present with facet hypertrophy.Prominent foraminal narrowing is present at L5-S1. Soft tissues: No retroperitoneal masses or hematomas. Visualized aorta is normal in caliber. IMPRESSION: Multilevel degenerative changes without visualized acute fracture. Reviewed by: Tanja Rutherford MD on 05/22/2021 6:36 PM PST Approved by: Tanja Rutherford MD on 05/22/2021 6:36 PM PST Station ID: [id number]
[2021-05-22] MEDS ORDERED: HYDROcod/ACET 5/325 Prepack 4 PO STA (18:56)
== END 2021-05-22 19:19 | disposition home or self-care (01) ==
LOC: ED 17:04
DX: S39.012A Strain of muscle, fascia and tendon of lower back, initial encounter (principal); W03.XXXA Other fall on same level due to collision with another person, initial encounter
CPT/HCPCS: 72131; 99282; 99284; A9270

== ENCOUNTER 2021-06-02 15:45 | Outpatient (CLI) | payer MEDICARE, OTHER ==
--- NOTE | 2021-06-02 16:09 | CT Report ---
PROCEDURE: HEAD WO INDICATIONS: INJURY OF HEAD TECHNIQUE: Noncontrast 4.5 mm thick angled axial sections acquired from the foramen magnum to the vertex. For r adiation dose reduction, the following was used: automated exposure control, adjustment of mA and/or kV according to patient size. COMPARISON: None. FINDINGS: Image quality: Excellent. CSF spaces: Basal cisterns are patent. No extra-axial fluid collections. The ventricles and sulci a re prominent suggesting volume loss. Brain: No midline shift. No intracranial masses or hemorrhage. Hinton-white matter interface is norm al. There are diffuse deep and periventricular white matter changes. The pineal gland is calcified. Skull and face: Calvarium and visualized facial bones are intact, without suspicious lesions. Sinuses: Visualized sinuses and mastoids are clear. IMPRESSION: 1. No acute intracranial findings. 2. Findings likely associated with chronic microvascular ischemic changes. Reviewed by: Amber Pappas MD on 06/02/2021 4:08 PM PST Approved by: Amber Pappas MD on 06/02/2021 4:08 PM PST Station ID: [id number]
== END 2021-06-02 15:46 | disposition home or self-care (01) ==
LOC: DI 15:45
PROVIDERS: ATTEND Internal Medicine
DX: F80.81 Childhood onset fluency disorder (principal); H53.2 Diplopia; R40.20 Unspecified coma; S09.90XA Unspecified injury of head, initial encounter; R90.89 Other abnormal findings on diagnostic imaging of central nervous system

== ENCOUNTER 2021-08-20 12:42 | Outpatient (CLI) | payer MEDICARE, OTHER ==
[2021-08-20 13:22] LABS: RHEUMATOID FACTOR NEGATIVE (Negative)
[2021-08-20 13:33] LABS: CRP - C-REACTIVE PROTEIN 1.3 mg/dL (0-1.0)
[2021-08-20 13:38] LABS: URIC ACID 4.7 mg/dL (2.6-7.2)
== END 2021-08-20 12:43 | disposition home or self-care (01) ==
LOC: LAB 12:42
PROVIDERS: ATTEND Internal Medicine
DX: M25.50 Pain in unspecified joint (principal); M79.673 Pain in unspecified foot; H91.90 Unspecified hearing loss, unspecified ear
CPT/HCPCS: 36415; 84550; 85651; 86140; 86200; 86430

== ENCOUNTER 2022-05-25 10:03 | Outpatient (CLI) | payer MEDICARE, OTHER ==
--- NOTE | 2022-05-25 12:05 | XRAY Report ---
PROCEDURE: Knee 4 View RT INDICATIONS: RIGHT KNEE PAIN TECHNIQUE: 4 views of the right knee(s) were acquired. COMPARISON: None. FINDINGS: Bones: No fractures or dislocations. No suspicious bony lesions. There is severe bilateral medial f emorotibial compartment narrowing and small intercondylar osteophytes. Soft tissues: No joint effusion. 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 IMPRESSION: 1. Moderate bilateral osteoarthritis. 2. 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 Reviewed by: Amber Pappas MD on 05/25/2022 12:03 PM PST Approved by: Amber Pappas MD on 05/25/2022 12:03 PM PST Station ID: [id number]
== END 2022-05-25 10:04 | disposition home or self-care (01) ==
LOC: DI.WOS 10:03
PROVIDERS: ATTEND Physician Assistant Surgical
DX: M17.0 Bilateral primary osteoarthritis of knee (principal); M11.262 Other chondrocalcinosis, left knee; M11.261 Other chondrocalcinosis, right knee

== ENCOUNTER 2022-07-14 14:03 | Emergency (ER) | payer MEDICARE, OTHER ==
--- NOTE | 2022-07-14 14:21 | ED Physician Documentation ---
PD HPI DYSPNEA - Stated complaint Stated Complaint: SOA, CHEST PX - Chief complaint Chief Complaint: Resp - History obtained from History obtained from: Patient, Family - Additional information Additional information: 89-year-old woman with history of bronchitis and pneumonia but generally very healthy has been sick for about 4 days with progressive dyspnea on exertion without orthopnea associated with chills but no fevers and fatigue. She has some pain to the bottom of both sides of the chest with this. She denies pedal edema or calf pain. No recent travel. She tried using albuterol inhaler twice without relief. PD PAST MEDICAL HISTORY - Past Medical History Cardiovascular: None Endocrine/Autoimmune: HyPOthyroidism GI: None : None HEENT: None Psych: Depression Musculoskeletal: Osteoarthritis, Osteoporosis Derm: None - Past Surgical History Past Surgical History: Yes - Present Medications Home Medications: Ambulatory Orders Medication Instructions Recorded Confirmed Doxycycline [Vibramycin] 100 mg PO BID #14 tablet 07/14/22 Gabapentin [Neurontin] 100 mg PO DAILY 07/14/22 07/14/22 - Allergies Allergies/Adverse Reactions: Allergies Allergy/AdvReac Type Severity Reaction Status Date / Time No Known Drug Allergies Allergy Verified 07/14/22 14:13 - Social History Does the pt smoke?: No Smoking Status: Never smoker Does the pt drink ETOH?: No Does the pt have substance abuse?: No PD ED PE NORMAL - Vitals Vital signs reviewed: Yes (Modest resting tachycardia) - General General: Alert and oriented X 3, Other (No distress albeit slightly tremulous) - HEENT HEENT: PERRL, EOMI - Neck Neck: Supple, no meningeal sign, No bony TTP - Cardiac Cardiac: Other (Modest resting tachycardia, regular, no murmur) - Respiratory Respiratory: Other (Diminished at the right base) - Abdomen Abdomen: Normal bowel sounds, Soft, Non tender - Extremities Extremities: No edema, No calf tenderness / cord - Neuro Neuro: Alert and oriented X 3, Normal speech Results - Vitals Vitals: Vital Signs - 24 hr 07/14/22 07/14/22 07/14/22 14:05 14:38 14:53 Temperature 36.5 C Heart Rate 106 H 100 88 Respiratory 18 16 26 H Rate Blood Pressure 112/66 96/72 O2 Saturation 98 100 98 07/14/22 07/14/22 15:32 16:29 Temperature Heart Rate 87 92 Respiratory 20 16 Rate Blood Pressure 120/85 H O2 Saturation 95 96 Oxygen O2 Source Room air - EKG (time done) 1418 EKG releavant findings:: EKG personally interpreted by author of this note. Relevant findings are: Rate: Rate (enter#) (94) Rhythm: NSR [place]: Normal Intervals: Normal TN QRS: Low voltage Ischemia: No: ST elevation c/w ischemia, ST depression - Labs Labs: Laboratory Tests 07/14/22 07/14/22 07/14/22 14:27 14:27 14:27 WBC 5.7 RBC 4.39 Hgb 12.6 Hct 39.8 MCV 90.7 MCH 28.7 MCHC 31.7 L RDW 13.8 Plt Count 195 MPV 9.3 Neut # (Auto) 4.2 Lymph # (Auto) 0.7 L [place] # (Auto) 0.6 Eos # (Auto) 0.1 Baso # (Auto) 0.1 Absolute Nucleated RBC 0.00 Nucleated RBC % 0.0 D-Dimer 284.8 H Sodium 140 Potassium 3.8 Chloride 104 Carbon Dioxide 29 Anion Gap 7.0 BUN 25 H Creatinine 1.1 H Estimated GFR (MDRD) 47 L Glucose 177 H Lactic Acid Calcium 8.8 Total Bilirubin 0.8 AST 25 ALT 14 Alkaline Phosphatase 62 Troponin I High Sens B-Natriuretic Peptide Total Protein 7.0 Albumin 3.6 Globulin 3.4 Albumin/Globulin Ratio 1.1 Urine Color Urine Clarity Urine pH Ur Specific [place] Urine Protein Urine Glucose (UA) Urine Ketones Urine Occult Blood Urine Nitrite Urine Bilirubin Urine Urobilinogen Ur Leukocyte Esterase Urine RBC Urine WBC Ur Squamous Epith Cells Urine Bacteria Urine Culture Comments Nasal Adenovirus (PCR) Nasal B. parapertussis DNA (PCR) Nasal Coronavir 229E PCR Nasal Coronavir HKU1 PCR Nasal Coronavir NL63 PCR Nasal Coronavir OC43 PCR Nasal Enterovir/Rhinovir PCR Nasal Influenza B PCR Nasal Influenza A PCR Nasal Parainfluen 1 PCR Nasal Parainfluen 2 PCR Nasal Parainfluen 3 PCR Nasal Parainfluen 4 PCR Nasal RSV (PCR) Nasal B.pertussis DNA PCR Nasal C.pneumoniae (PCR) Jude Human Metapneumo PCR Nasal M.pneumoniae (PCR) Nasal SARS-CoV-2 (PCR) 07/14/22 07/14/22 07/14/22 14:27 14:27 14:28 WBC RBC Hgb Hct MCV MCH MCHC RDW Plt Count MPV Neut # (Auto) Lymph # (Auto) [place] # (Auto) Eos # (Auto) Baso # (Auto) Absolute Nucleated RBC Nucleated RBC % D-Dimer Sodium Potassium Chloride Carbon Dioxide Anion Gap BUN Creatinine Estimated GFR (MDRD) Glucose Lactic Acid 2.0 Calcium Total Bilirubin AST ALT Alkaline Phosphatase Troponin I High Sens 6.0 B-Natriuretic Peptide 51 Total Protein Albumin Globulin Albumin/Globulin Ratio Urine Color Urine Clarity Urine pH Ur Specific [place] Urine Protein Urine Glucose (UA) Urine Ketones Urine Occult Blood Urine Nitrite Urine Bilirubin Urine Urobilinogen Ur Leukocyte Esterase Urine RBC Urine WBC Ur Squamous Epith Cells Urine Bacteria Urine Culture Comments Nasal Adenovirus (PCR) Nasal B. parapertussis DNA (PCR) Nasal Coronavir 229E PCR Nasal Coronavir HKU1 PCR Nasal Coronavir NL63 PCR Nasal Coronavir OC43 PCR Nasal Enterovir/Rhinovir PCR Nasal Influenza B PCR Nasal Influenza A PCR Nasal Parainfluen 1 PCR Nasal Parainfluen 2 PCR Nasal Parainfluen 3 PCR Nasal Parainfluen 4 PCR Nasal RSV (PCR) Nasal B.pertussis DNA PCR Nasal C.pneumoniae (PCR) Jude Human Metapneumo PCR Nasal M.pneumoniae (PCR) Nasal SARS-CoV-2 (PCR) 07/14/22 07/14/22 14:30 15:30 WBC RBC Hgb Hct MCV MCH MCHC RDW Plt Count MPV Neut # (Auto) Lymph # (Auto) [place] # (Auto) Eos # (Auto) Baso # (Auto) Absolute Nucleated RBC Nucleated RBC % D-Dimer Sodium Potassium Chloride Carbon Dioxide Anion Gap BUN Creatinine Estimated GFR (MDRD) Glucose Lactic Acid Calcium Total Bilirubin AST ALT Alkaline Phosphatase Troponin I High Sens B-Natriuretic Peptide Total Protein Albumin Globulin Albumin/Globulin Ratio Urine Color YELLOW Urine Clarity CLEAR Urine pH 6.0 Ur Specific [place] 1.025 Urine Protein NEGATIVE Urine Glucose (UA) NEGATIVE Urine Ketones NEGATIVE Urine Occult Blood NEGATIVE Urine Nitrite NEGATIVE Urine Bilirubin NEGATIVE Urine Urobilinogen 0.2 (NORMAL) Ur Leukocyte Esterase SMALL H Urine RBC 0-5 Urine WBC 11-25 H Ur Squamous Epith Cells FEW Squamous Urine Bacteria Rare Urine Culture Comments INDICATED Nasal Adenovirus (PCR) NOT DETECTED Nasal B. parapertussis DNA (PCR) NOT DETECTED Nasal Coronavir 229E PCR NOT DETECTED Nasal Coronavir HKU1 PCR NOT DETECTED Nasal Coronavir NL63 PCR NOT DETECTED Nasal Coronavir OC43 PCR NOT DETECTED Nasal Enterovir/Rhinovir PCR NOT DETECTED Nasal Influenza B PCR NOT DETECTED Nasal Influenza A PCR NOT DETECTED Nasal Parainfluen 1 PCR NOT DETECTED Nasal Parainfluen 2 PCR NOT DETECTED Nasal Parainfluen 3 PCR NOT DETECTED Nasal Parainfluen 4 PCR NOT DETECTED Nasal RSV (PCR) NOT DETECTED Nasal B.pertussis DNA PCR NOT DETECTED Nasal C.pneumoniae (PCR) NOT DETECTED Jude Human Metapneumo PCR NOT DETECTED Nasal M.pneumoniae (PCR) NOT DETECTED Nasal SARS-CoV-2 (PCR) NOT DETECTED - Rads (name of study) 1v cxr Relevant Findings:: Final report received, EMP independent interpretation of test CT angiography of the chest Relevant Findings:: Final report received, EMP independent interpretation of test PD Medical Decision Making - ED course ED course: 89-year-old woman presents with shaking versus rigors for 2 days with shortness of breath not associate with cough. There is no orthopnea no evidence of fluid overload. Work-up demonstrates CBC showing mild lymphopenia. D-dimer is 284 which flagged as high but age-adjusted even dimer this is in the negative range. CMP notable for mild prerenal azotemia, last labs were almost 10 years ago so not really comparable. Troponin, BNP, and lactate normal. Single view chest x- ray unremarkable. That said, despite the "negative" D-dimer, given her advanced age and un explained cause of her symptoms she was sent over for CT of the chest which demonstrated probably an atypical pneumonia with a superimposed potentially malignant transformation of a prior seen nodule in the right upper lobe. This was discussed with the patient and her daughter at the bedside and they understand the need for follow-up and further testing. Departure - Departure Disposition: 01 Home, Self Care Clinical Impression: Pneumonia Condition: Good Record reviewed to determine appropriate education?: Yes Instructions: Pneumonia Dc Prescriptions: Doxycycline [Vibramycin] 100 mg PO BID #14 tablet Comments: You were seen today for shortness of breath. Your lab work looked okay, no sign of an active heart problem or COVID. The CAT scan of your chest did show proba theresa an atypical pneumonia, but also concerning leg potentially cancerous change in the right upper lobe. For this, schedule the next available appointment you can with Dr. Santo to discuss further work-up which could include PET scanning, biopsy, or watchful waiting/ignorance depending on your goals of care. I sent a prescription for antibiotics to in [place]. Return if worse.
[2022-07-14 14:37] LABS: BASOPHILS # (AUTO) 0.1 10^3/uL (0.0-0.1); BASOPHILS % (AUTO) 1.1 %; EOSINOPHILS # (AUTO) 0.1 10^3/uL (0.0-0.7); EOSINOPHILS % (AUTO) 1.6 %; HCT - HEMATOCRIT 39.8 % (37.0-47.0); HGB - HEMOGLOBIN 12.6 g/dL (12.0-16.0); LYMPHOCYTES # (AUTO) 0.7 10^3/uL (1.5-3.5); LYMPHOCYTES % (AUTO) 12.8 %; MEAN CORPUSCULAR HEMOGLOBIN 28.7 pg (27.0-31.0); MEAN CORPUSCULAR HGB CONC 31.7 g/dL (32.0-36.0); MEAN CORPUSCULAR VOLUME 90.7 fL (81.0-99.0); MEAN PLATELET VOLUME 9.3 fL (7.9-10.8); MONOCYTES # (AUTO) 0.6 10^3/uL (0.0-1.0); MONOCYTES % (AUTO) 9.8 %; NEUTROPHILS # (AUTO) 4.2 10^3/uL (1.5-6.6); NEUTROPHILS % (AUTO) 74.5 %; PLT - PLATELET COUNT 195 10^3/uL (130-450); RED BLOOD COUNT 4.39 10^6/uL (4.20-5.40); RED CELL DISTRIBUTION WIDTH 13.8 % (12.0-15.0); WHITE BLOOD COUNT 5.7 x10^3/uL (4.8-10.8)
--- OUTSIDE RECORDS SUMMARY | 2022-07-14 14:53 | EXTERNAL MEDICAL SUMMARY RPT | Continuity of Care Document ---
:1930 Author Organization [facility] Address [address] [place] [address] Phone Care Team Providers Name Role Phone Unavailable Unavailable Unavailable Marsha Santo Md Unavailable Unavailable Allergies and Intolerances date description facility type (no date) ALENDRONATE SODIUM [facility] (no date) PAROXETINE HCL [facility] (no date) IODINE [facility] (no date) PHENERGAN [facility] Encounters No information. Functional Status No information. Immunizations No information. Medications date description facility 2022-05-27 00:00 mupirocin [facility] 2022-05-30 00:00 mupirocin [facility] 2022-06-01 00:00 mupirocin [facility] 2022-05-27 00:00 nystatin [facility] 2022-05-30 00:00 nystatin [facility] 2022-06-01 00:00 nystatin [facility] 2022-05-27 00:00 mupirocin [facility] 2022-05-30 00:00 mupirocin [facility] 2022-06-01 00:00 mupirocin [facility] 2022-05-27 00:00 triamcinolone acetonide [facility] 2022-05-30 00:00 triamcinolone acetonide [facility] 2022-06-01 00:00 triamcinolone acetonide [facility] 2022-05-27 00:00 multivitamin with iron [facility] 2022-05-30 00:00 multivitamin with iron [facility] 2022-06-01 00:00 multivitamin with iron [facility] 2022-05-27 00:00 multivitamin with iron [facility] 2022-05-30 00:00 multivitamin with iron [facility] 2022-06-01 00:00 multivitamin with iron [facility] 2022-05-27 00:00 nystatin [facility] 2022-05-30 00:00 nystatin [facility] 2022-06-01 00:00 nystatin [facility] 2022-05-27 00:00 diclofenac sodium [facility] 2022-05-30 00:00 diclofenac sodium [facility] 2022-06-01 00:00 diclofenac sodium [facility] [place] 2022-05-27 00:00 triamcinolone acetonide [facility] 2022-05-30 00:00 triamcinolone acetonide [facility] 2022-06-01 00:00 triamcinolone acetonide [facility] [place] 2022-05-27 00:00 clobetasol [facility] 2022-05-30 00:00 clobetasol [facility] 2022-06-01 00:00 clobetasol [facility] 2022-05-27 00:00 mupirocin [facility] 2022-05-30 00:00 mupirocin [facility] 2022-06-01 00:00 mupirocin [facility] 2022-05-27 00:00 sertraline [facility] 2022-05-30 00:00 sertraline [facility] 2022-06-01 00:00 sertraline [facility] 2022-05-27 00:00 clotrimazole-betamethasone [facility] 2022-05-30 00:00 clotrimazole-betamethasone [facility] 2022-06-01 00:00 clotrimazole-betamethasone [facility] 2022-05-27 00:00 gabapentin [facility] 2022-05-30 00:00 gabapentin [facility] 2022-06-01 00:00 gabapentin [facility] 2022-05-27 00:00 sertraline [facility] 2022-05-30 00:00 sertraline [facility] 2022-06-01 00:00 sertraline [facility] 2022-05-27 00:00 albuterol sulfate [facility] 2022-05-30 00:00 albuterol sulfate [facility] 2022-06-01 00:00 albuterol sulfate [facility] [place] 2022-05-27 00:00 albuterol sulfate [facility] [place] 2022-05-30 00:00 albuterol sulfate [facility] [place] 2022-06-01 00:00 albuterol sulfate [facility] [place] 2022-05-27 00:00 gabapentin [facility] [place] 2022-05-30 00:00 gabapentin [facility] [place] 2022-06-01 00:00 gabapentin [facility] 2022-05-27 00:00 clobetasol [facility] 2022-05-30 00:00 clobetasol [facility] 2022-06-01 00:00 clobetasol [facility] [place] 2022-05-27 00:00 triamcinolone acetonide [facility] 2022-05-30 00:00 triamcinolone acetonide [facility] 2022-06-01 00:00 triamcinolone acetonide [facility] 2022-05-27 00:00 clotrimazole-betamethasone [facility] [place] 2022-05-30 00:00 clotrimazole-betamethasone [facility] 2022-06-01 00:00 clotrimazole-betamethasone [facility] [place] 2022-05-27 00:00 sertraline [facility] 2022-05-30 00:00 sertraline [facility] 2022-06-01 00:00 sertraline [facility] 2022-05-27 00:00 sertraline [facility] 2022-05-30 00:00 sertraline [facility] 2022-06-01 00:00 sertraline [facility] 2022-05-27 00:00 gabapentin [facility] 2022-05-30 00:00 gabapentin [facility] 2022-06-01 00:00 gabapentin [facility] 2022-05-27 00:00 diclofenac sodium [facility] 2022-05-30 00:00 diclofenac sodium [facility] 2022-06-01 00:00 diclofenac sodium [facility] 2022-05-27 00:00 albuterol sulfate [facility] 2022-05-30 00:00 albuterol sulfate [facility] 2022-06-01 00:00 albuterol sulfate [facility] 2022-05-27 00:00 clotrimazole-betamethasone [facility] 2022-05-30 00:00 clotrimazole-betamethasone [facility] 2022-06-01 00:00 clotrimazole-betamethasone [facility] 2022-05-27 00:00 gabapentin [facility] 2022-05-30 00:00 gabapentin [facility] 2022-06-01 00:00 gabapentin [facility] 2022-05-27 00:00 albuterol sulfate [facility] 2022-05-30 00:00 albuterol sulfate [facility] 2022-06-01 00:00 albuterol sulfate [facility] 2022-05-27 00:00 multivitamin with iron [facility] 2022-05-30 00:00 multivitamin with iron [facility] 2022-06-01 00:00 multivitamin with iron [facility] 2022-05-27 00:00 diclofenac sodium [facility] 2022-05-30 00:00 diclofenac sodium [facility] 2022-06-01 00:00 diclofenac sodium [facility] 2022-05-27 00:00 clobetasol [facility] 2022-05-30 00:00 clobetasol [facility] 2022-06-01 00:00 clobetasol [facility] 2022-05-27 00:00 triamcinolone acetonide [facility] 2022-05-30 00:00 triamcinolone acetonide [facility] 2022-06-01 00:00 triamcinolone acetonide [facility] [place] 2022-05-27 00:00 nystatin [facility] 2022-05-30 00:00 nystatin [facility] 2022-06-01 00:00 nystatin [facility] 2022-05-27 00:00 mupirocin [facility] 2022-05-30 00:00 mupirocin [facility] 2022-06-01 00:00 mupirocin [facility] [place] 2022-05-27 00:00 nystatin [facility] [place] 2022-05-30 00:00 nystatin [facility] 2022-06-01 00:00 nystatin [facility] 2022-05-27 00:00 clotrimazole-betamethasone [facility] [place] 2022-05-30 00:00 clotrimazole-betamethasone [facility] 2022-06-01 00:00 clotrimazole-betamethasone [facility] [place] 2022-05-27 00:00 diclofenac sodium [facility] 2022-05-30 00:00 diclofenac sodium [facility] [place] 2022-06-01 00:00 diclofenac sodium [facility] [place] 2022-05-27 00:00 clobetasol [facility] [place] 2022-05-30 00:00 clobetasol [facility] 2022-06-01 00:00 clobetasol [facility] Problems date description facility 2022-05-19 00:00 Knee pain [facility] 2022-05-19 00:00 Pain in joint involving lower leg [facility] [place] 2022-05-19 00:00 Pain in right knee [facility] 2022-05-27 00:00 Meniere's disease [facility] 2022-05-27 00:00 Biliary calculus [facility] [place] 2022-05-27 00:00 Dupuytren's contracture [facility] [place] 2022-05-27 00:00 Depressive disorder, not elsewhere [facility] [place] 2022-05-27 00:00 Depressive disorder [facility] [place] 2022-05-27 00:00 Meniere's disease, unspecified [facility] 2022-05-27 00:00 Calculus of gallbladder without [facility] & mention of cholecystitis, without [facility] [place] mention of obstruction 2022-05-27 00:00 Osteoporosis [facility] 2022-05-27 00:00 Rheumatoid arthritis [facility] Pr im[facility] Care & Ancillary Services [facility] 2022-05-27 00:00 Radial styloid tenosynovitis [facility] Care & Ancillary Services [facility] 2022-05-27 00:00 Contracture of palmar fascia [facility] Care & Ancillary Services [facility] 2022-05-27 00:00 Osteoporosis, unspecified [facility]In [facility] Care & Ancillary Services [facility] 2022-05-27 00:00 Other abnormal glucose [facility] 2022-05-27 00:00 Hyperglycemia [facility] 2022-05-27 00:00 Major depressive disorder, single [facility] & episode, unspecified [facility] [place] 2022-05-27 00:00 Meniere's disease, unspecified ear [facility] 2022-05-27 00:00 Calculus of gallbladder without [facility] & cholecystitis without obstruction [facility] [place] 2022-05-27 00:00 Rheumatoid arthritis with [facility] & rheumatoid factor, unspecified [facility] [place] 2022-05-27 00:00 Radial styloid tenosynovitis [de [facility] & Querv[place]] [facility] [place] 2022-05-27 00:00 Palmar fascial fibromatosis [facility] Primary Care & [Dupuytren] [facility] [place] 2022-05-27 00:00 Age-related osteoporosis without [facility] & current pathological fracture [facility] 2022-05-27 00:00 Hyperglycemia, unspecified [facility] [place] 2022-05-30 00:00 Osteoarthritis of knee [facility] [place] 2022-05-30 00:00 Osteoarthrosis, unspecified whether [facility] & generalized or localized, involving Anci llary [facility] lower leg 2022-05-30 00:00 Unilateral primary osteoarthritis, [facility] & right knee [facility] [place] Procedures No information. Results/Labs No information. Social History date description facility 2022-05-19 00:00 Unknown if ever smoked [facility] [place] 2022-05-27 00:00 Unknown if ever smoked [facility] [place] 2022-05-30 00:00 Unknown if ever smoked [facility] [place] 2022-06-01 00:00 Unknown if ever smoked [facility] [place] Vital Signs date measurement value units 2022-05-30 00:00 weight_metric 53.98 kg 2022-05-30 00:00 weight_standard 119 lb
[2022-07-14 14:59] LABS: ALBUMIN 3.6 g/dL (3.2-5.5); ALBUMIN/GLOBULIN RATIO 1.1 (1.0-2.2); BILIRUBIN,TOTAL 0.8 mg/dL (0.2-1.0); CALCIUM 8.8 mg/dL (8.5-10.3); CREATININE 1.1 mg/dL (0.4-1.0); POTASSIUM 3.8 mmol/L (3.5-5.0)
--- NOTE | 2022-07-14 15:05 | XRAY Report ---
PROCEDURE: Chest 1 View X-Ray INDICATIONS: dyspnea TECHNIQUE: One view of the chest was acquired. COMPARISON: None. FINDINGS: Surgical changes and devices: None. Lungs and pleura: No pleural effusions or pneumothorax. Lungs are clear. 6 mm calcification in th e right midlung. Mediastinum: Mediastinal contours appear normal. Heart size is normal. The aorta is tortuous. Bones and chest wall: No suspicious bony lesions. Overlying soft tissues appear unremarkable. IMPRESSION: No acute cardiopulmonary abnormality. Reviewed by: Zurdo Francisco on 07/14/2022 3:03 PM PDT Approved by: Zurdo Francisco on 07/14/2022 3:03 PM PDT Station ID: [id number]
[2022-07-14 15:30] LABS: CORONAVIRUS 229E-RESP PCR NOT DETECTED; CORONAVIRUS HKU1-RESP PCR NOT DETECTED; CORONAVIRUS NL63-RESP PCR NOT DETECTED; CORONAVIRUS OC43-RESP PCR NOT DETECTED; HUMAN METAPNEUMOVIRUS NOT DETECTED; INFLUENZA A- RESP PCR PANEL NOT DETECTED; INFLUENZA B - RESP PCR PANEL NOT DETECTED; PARAINFLUENZA VIRUS 1 NOT DETECTED; RHINOVIRUS/ENTEROVIRUS NOT DETECTED; SARS-CoV-2 -RESP PCR PANEL NOT DETECTED
[2022-07-14 15:31] LABS: B. PARAPERTUSSIS- RESP PCR PAN NOT DETECTED; B. PERTUSSIS- RESP PCR PANEL NOT DETECTED; C. PNEUMONIAE- RESP PCR PANEL NOT DETECTED; M. PNEUMONIAE- RESP PCR PANEL NOT DETECTED; PARAINFLUENZA VIRUS 2 NOT DETECTED; PARAINFLUENZA VIRUS 3 NOT DETECTED; PARAINFLUENZA VIRUS 4 NOT DETECTED; RSV- RESP PCR PANEL NOT DETECTED
[2022-07-14 15:35] LABS: BILIRUBIN,URINE NEGATIVE (NEGATIVE); GLUCOSE, URINE (UA) NEGATIVE (NEGATIVE); KETONES,URINE (UA) NEGATIVE (NEGATIVE); LEUKOCYTE ESTERASE, URINE SMALL (NEGATIVE); NITRITE,URINE NEGATIVE (NEGATIVE); OCCULT BLOOD,URINE NEGATIVE (NEGATIVE); PROTEIN,URINE NEGATIVE (NEGATIVE); UROBILINOGEN,URINE 0.2 (NORMAL) E.U./dL (NORMAL)
[2022-07-14 15:36] LABS: CLARITY,URINE CLEAR (CLEAR)
[2022-07-14 15:46] LABS: BACTERIA,URINE Rare /HPF (None Seen); RBC,URINE 0-5 /HPF (0-5); SQUAMOUS EPITHELIAL CELL,UR FEW Squamous (<= Few)
[2022-07-14] MEDS ORDERED: iohexoL-300 100 ML VIAL ONE (15:49)
[2022-07-14] MEDS ORDERED: iohexoL-300 100 ML VIAL IVP ONE (16:25)
[2022-07-14 16:30] VITALS: BP 120/85
--- NOTE | 2022-07-14 16:31 | CT Report ---
PROCEDURE: ANGIO CHEST W/WO INDICATIONS: dyspnea CONTRAST: 80mL Omni 300 TECHNIQUE: After the administration of intravenous contrast, 2 mm axial images were acquired from the pulmonary apices to the posterior costophrenic angles during the arterial phase. In addition, 1 mm lung kernel and 5 mm soft tissue kernel reconstructions were performed. 3-dimensional coronal oblique maximum int ensity projection (MIP) reformats, 8 mm axial MIP, and 5 mm coronal and sagittal MPR reformats were t hen performed through the thorax. For radiation dose reduction, the following was used: automated exp osure control, adjustment of mA and/or kV according to patient size. COMPARISON: Chest x-ray 07/14/2022, CT chest 11/27/2020 FINDINGS: Image quality: Excellent. Large vessels: No filling defects within the opacified pulmonary arteries, accounting for motion and contrast timing. No evidence of acute aortic syndrome or aortic aneurysm. Lungs and pleura: No pleural effusions. No pneumothorax. No suspicious pulmonary nodules which requi re follow up. Calcific granulomas noted in the right base, unchanged. Ground glass nodule in the righ t upper lobe measures 78 mm relatively unchanged in size. However, it has demonstrated a more solid a ppearance when compared to prior exam. Scattered smaller areas of patchy groundglass opacity are note d within the lungs bilaterally. Mediastinum: Heart size is normal. No pericardial effusions. No mediastinal adenopathy by size criter ia. 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 Chest wall and lower neck: Thyroid is unremarkable. No axillary or supraclavicular adenopathy by size . Bones: No aggressive osseous abnormality. Upper Abdomen: Simple left renal cyst is unchanged. IMPRESSION: No pulmonary embolism. More solid appearance of previous right upper lobe groundglass nodule. This is concerning for maligna nt transformation. Further evaluation with PET scan or biopsy is recommended. Scattered areas of patchy groundglass opacity which may be related to infection or inflammation. Jayy mmend short interval imaging follow-up after appropriate therapy to document resolution. Reviewed by: Tanja Rutherford MD on 07/14/2022 4:30 PM PDT Approved by: Tanja Rutherford MD on 07/14/2022 4:30 PM PDT Station ID: [id number]
[2022-07-14] MEDS ORDERED: DOXYCYCLINE 100 MG TABLET PO STA (16:44)
== END 2022-07-14 16:55 | disposition home or self-care (01) ==
LOC: ED 14:03
DX: J18.9 Pneumonia, unspecified organism (principal); R91.1 Solitary pulmonary nodule; Z20.822 Contact with and (suspected) exposure to COVID-19
CPT/HCPCS: 36415; 71045; 71275; 80053; 81001; 83605; 83880; 84484; 85025; 85379; 87040; 87633; 93005; 99284; A9270; Q9967; 87086